=== PATIENT | female | born 1980 | race African-American/Black ===

== ENCOUNTER 2021-09-20 03:11 | Emergency (ER) | payer MEDICAID ==
[~2021-09-20] VITALS: Ht 167.6 cm; Wt 55.0 kg
[2021-09-20 03:13] VITALS: BP 117/73
[2021-09-20] MEDS ORDERED: AMOX-494 MT (03:42)
[2021-09-20] MEDS ORDERED: IBUP-2029 MT (03:42)
[2021-09-20] MEDS ORDERED: ACETAMINOPHEN WITH CODEINE 300/30MG TABLET PO ONE (03:45)
== END 2021-09-20 04:57 | disposition home or self-care (01) ==
LOC: ER 03:11
DX: K08.89 Other specified disorders of teeth and supporting structures (principal); R22.0 Localized swelling, mass and lump, head
CPT/HCPCS: 81025; 99283

== ENCOUNTER 2022-07-26 06:17 | Emergency (ER) | payer MEDICAID ==
[~2022-07-26] VITALS: Ht 170.2 cm; Wt 54.0 kg
[~2022-07-26 06:17] MED LIST: AMOX-494 MT; IBUP-2029 MT
[2022-07-26 07:52] LABS: BASOPHILS % 0.7 % (0.0-2.0); EOSINOPHILS % 4.2 % (0.0-5.0); HEMATOCRIT. 38.3 % (36.0-48.0); HEMOGLOBIN. 13.1 g/dL (12.0-16.0); LYMPHOCYTES % 24.1 % (20.0-50.0); MEAN CORPUSCULAR VOLUME 96.6 fL (81.0-99.0); MEAN PLATELET VOLUME 9.8 fl (7.4-10.4); MONOCYTES % 6.8 % (2.0-8.0); NEUTROPHILS % 64.2 % (40.0-76.0); PLATELET 229 x1000/uL (130-400); RED BLOOD CELL COUNT 3.96 mill/uL (4.2-5.4); RED CELL DISTRIBUTION WIDTH 13.7 % (11.6-14.6)
[2022-07-26 07:56] LABS: CLARITY URINE CLEAR (CLEAR); COLOR URINE YELLOW (YELLOW); KETONES URINE NEGATIVE (NEGATIVE); LEUKOCYTE ESTERASE URINE TRACE (NEGATIVE); NITRITE URINE NEGATIVE (NEGATIVE); OCCULT BLOOD URINE NEGATIVE (NEGATIVE); PH URINE 5.5 (4.5-8.0); PROTEIN URINE NEGATIVE (NEGATIVE); SPECIFIC GRAVITY URINE 1.006 (1.005-1.030); UROBILINOGEN URINE 0.2 E.U./dL (0.2-1.0)
[2022-07-26 07:59] LABS: CHLORIDE 106 mEq/L (98-107)
[2022-07-26 08:10] VITALS: BP 97/54
[2022-07-26] MEDS ORDERED: TOPUD MT (11:30)
== END 2022-07-26 11:41 | disposition home or self-care (01) ==
LOC: ER 06:17
DX: B34.9 Viral infection, unspecified (principal); Z20.822 Contact with and (suspected) exposure to COVID-19
CPT/HCPCS: 36415; 80053; 81003; 81025; 85025; 87426; 93005; 99284; C9803